=== PATIENT | male | born 1990 | race Hispanic/Latino ===

== ENCOUNTER 2023-08-15 20:47 | Emergency (ER) | payer OTHER, SELFPAY ==
[2023-08-15] VITALS (8 sets, daily range): BP systolic 110–167; BP diastolic 67–87; PULSE 74–105; RESP 16–26; TEMP 36.1–36.9; O2SAT 93–98
--- NOTE | 2023-08-15 20:43 | PC.NURSE ---
haldol 5mg and ativan 2mg vrbo per dr mckenzie from pt bedside
[2023-08-15] MEDS: HALOPERIDOL LACTATE 5 MG/ML VIAL IM (21:03)
[2023-08-15] MEDS: LORazepam INJ (*CRX) 2 MG/ML VIAL IM (21:03)
--- NOTE | 2023-08-15 21:03 | PC.NURSE ---
Pt given haldol 5mg and ativan 2mg at 2044 to assist with growling, aggressive behavior towards pd and staff.
[2023-08-15 21:07] LABS: Basophils Percent Auto 0.3 % (0.2-1.2); Eosinophils Absolute Auto 0.2 K/mm3 (0-0.3); Eosinophils Percent Auto 1.7 % (0-4.4); Hematocrit 45.4 % (42.0-52.0); Hemoglobin 15.4 g/dL (14.0-18.0); Immature Granulocyte Absolute 0.04 K/mm3 (0.00-0.031); Immature Granulocyte Percent A 0.3 % (0-0.5); Lymphocytes Absolute Auto 3.77 K/mm3 (0.9-3.2); Lymphocytes Percent Auto 32.9 % (18.3-44.2); Mean Corpuscular HGB Conc 33.9 g/dl (32-36); Mean Corpuscular Hemoglobin 30.1 pg (26-34); Mean Corpuscular Volume 88.8 fl (80-100); Mean Platelet Volume 10.4 fl (7.4-10.4); Monocytes Absolute Auto 0.6 K/mm3 (0.1-0.6); Monocytes Percent Auto 5.4 % (2.6-8.5); Neutrophils Absolute Auto 6.8 K/mm3 (1.3-6.7); Neutrophils Percent Auto 59.4 % (45.5-73.1); Platelet Count Result 280 k/mm3 (150-375); Red Blood Count 5.11 M/mm3 (4.6-6.20); Red Cell Distribution Width 13.8 % (11.5-14.5); White Blood Count 11.5 K/mm3 (4.5-10.0)
[2023-08-15 21:18] LABS: Ethanol < 10 mg/dL (<10)
[2023-08-15 21:35] LABS: Alanine Aminotransferase 25 U/L (6-50); Albumin Level 4.6 g/dL (3.5-5.1); Alkaline Phosphatase 84 U/L (38-126); Anion Gap 13 mmol/L (4-12); Aspartate Amino Transferase 24 U/L (17-59); Bilirubin,Total 0.7 mg/dL (0.2-1.3); Blood Urea Nitrogen 17 mg/dL (9-20); Calcium 9.3 mg/dL (8.4-10.2); Carbon Dioxide 18 mmol/L (22-30); Chloride 111 mmol/L (98-107); Estimated CRCL calculation 126 ml/min; Estimated Glomerular Filt Rate > 60; Glucose 136 mg/dL (65-110); Potassium 3.5 mmol/L (3.4-5.0); Sodium 142 mmol/L (137-145)
[2023-08-15 21:44] LABS: Influenza A QL RT-PCR Negative (Negative); Influenza B QL RT-PCR Negative (Negative); RSV RNA, RT-PCR Negative (Negative); SARS-CoV-2 RNA PCR Negative (Negative)
[2023-08-15 21:59] LABS: Amphetamine Screen Urine Negative (Negative); Barbiturate Screen Urine Negative (Negative); Benzodiazepines Screen Urine Negative (Negative); Cannabinoid Screen Urine Positive (Negative); Cocaine Screen Urine Negative (Negative); Methadone Screen Urine Negative (Negative); Opiate Screen Urine Negative (Negative); Phencyclidine Screen Urine Negative (Negative)
--- NOTE | 2023-08-15 22:03 | ED.PSYCH ---
HPI - Psych General Chief Complaint: Psychiatric Symptoms Stated Complaint: BIPOLAR, AGGRESION, A/V HALLUCINATIONS Source: patient and family (mother, Tiesha ) Mode of arrival: EMS Limitations: other (agitation) History of Present Illness HPI Narrative: Patient is initially agitated requiring chemical restraint. Thus, history is initially obtained from patient's mother who is his guardian. She reports he has a history of bipolar and schizophrenia and has been aggressive at home and was aggressive with police today. She is in fear in they have to lock their doors. She states he had previously been on monthly Invega injections but the state program that they were a part of that had a nurse come to the home to help administer this was discontinued and he has been without this for the past 2-3 years. He now experiences hallucinations both auditory and visual. Mother states that he will not shower as he states that if he takes off his clothes he is paranoid they are watching him. She reports that he threatened to kill her if he did get cigarettes. She states he smokes a carton and a half per week. She knows that he used marijuana as a teenager but does not know about current use. Patient arouses during my exam with him, denies any chest pain, abdominal pain, shortness of breath. Related Data Home Medications Medication Instructions Recorded Confirmed No Home Medications 08/15/23 Allergies Allergy/AdvReac Type Severity Reaction Status Date / Time No Known Allergies Allergy Verified 08/15/23 21:01 [facility] Past Medical History Medical History Bipolar disorder Schizophrenia Family History Family History (Updated 10/18/13 @ 07:13 by DOCTOR UNKNOWN) Mother Hypertension Family history of elevated blood lipids Social History Social History (Updated 08/16/23 @ 05:14 by Jelly Mcgrath MD) Smoking status: Current every day smoker Second hand tobacco smoke exposure: No Additional smoking assessment comments: 1.5 cartons per week Alcohol intake: current Substance use type: marijuana Living arrangements: with family Exam Narrative: GENERAL: Well-appearing, well-nourished; HEAD: Normocephalic, atraumatic. EYES: Non injected, non icteric ENT: Nares clear, no rhinorrhea or epistaxis. NECK: Supple. CHEST: Not in respiratory distress. Snoring respirations well sleeping but otherwise protecting his airway. Lungs clear to auscultation on exam once he is awake. ABDOMEN: Soft, nondistended. EXTREMITIES: Normal range of motion. No edema. SKIN: Warm, dry. NEURO: No focal deficits. Alert and oriented. PSYCH: Agitated with staff/EMS personnel. Growling. Poor hygiene. Course Vital Signs Vital signs: Vital Signs Temperature 97.5 F L 08/15/23 20:54 Pulse Rate 105 H 08/15/23 20:54 Respiratory Rate 26 H 08/15/23 20:54 Blood Pressure 141/79 H 08/15/23 20:54 Pulse Oximetry 96 08/15/23 20:54 Temperature 98 F 08/16/23 00:35 Pulse Rate 86 08/16/23 00:35 Respiratory Rate 18 08/16/23 00:35 Blood Pressure 123/70 08/16/23 00:35 Pulse Oximetry 98 08/16/23 00:35 MDM - Psych MDM Narrative Medical decision making narrative: 33-year-old with past medical history of bipolar disorder and schizophrenia per mother who is also his guardian. She notes that he was previously on monthly Invega injections but the state program that provided nurse to administer this at the house had been discontinued and thus he has been out of this medication for the past 2-3 years. She states he has decompensated significantly over the past month, becoming more aggressive. He does not shower as he has hallucinations and is paranoid they are watching him if he is naked. He threatened to kill her if she doesn't get him cigarettes, which he smokes 1.5 cartons of per week. In the emergency department he is afebrile with vital signs michelle
[2023-08-15 22:12] LABS: Appearance Urine Clear (Clear); Bilirubin Urine Negative (Negative); Blood Urine Negative (Negative); Color Urine Yellow (Yellow); Glucose Urine UA Negative (Negative); Ketones Urine Trace mg/dL (Negative); Leukocyte Esterase Ur Negative LEU/UL (Negative); Nitrate Urine Negative (Negative); Protein Urine Negative (Negative); Specific Grav Ur 1.029 (1.001-1.035); Urobilinogen Urine 0.2 mg/dL (<2.0); pH Urine 5.5 (5.0-9.0)
[2023-08-15 22:20] LABS: Add Urine Microscopic? NO
[2023-08-16] VITALS (7 sets, daily range): BP systolic 123–145; BP diastolic 70–90; PULSE 53–86; RESP 14–18; TEMP 36.3–37.2; O2SAT 97–99
--- NOTE | 2023-08-16 01:40 | PC.NURSE ---
[facility] - [address], [place] [address] Rn to ZECHARIAH Gomez
--- NOTE | 2023-08-16 07:39 | PC.NURSE ---
called dietary at this time and ordered a breakfast tray for pt, pt continues to rest on the stretcher, equal chest rise and fall
--- NOTE | 2023-08-16 09:39 | PC.NURSE ---
calls for EMS transport Replaced By [facility]- - has no truck
--- NOTE | 2023-08-16 13:11 | PC.NURSE ---
additional records faxed to [facility] as requested by facility FAX [phone]
--- NOTE | 2023-08-16 13:35 | ECG_ITS ---
Test Date: 2023-08-16 13:41:56 Measurements Intervals [place] Rate: 65 P: 24 NE: 155 QRS: 60 QRSD: 95 T: 14 QT: 348 QTc: 364 Interpretive Statements SINUS RHYTHM WITH SINUS ARRHYTHMIA LOW QRS VOLTAGE IN PRECORDIAL LEADS [QRS DEFLECTION < 1.0 mV IN CHEST LEADS] No previous ECG available for comparison Electronically Signed On 08-17-2023 11:43:28 CDT by Suzi Waters M.D.
--- NOTE | 2023-08-16 13:47 | PC.NURSE ---
EKG faxed to [facility] as requested at this time.
--- NOTE | 2023-08-16 16:27 | PC.NURSE ---
Pt escalating and becoming agitated. ED staff Attempting to deescalate at this time w/out success. Per [facility] charge gang weigher, 2 security officers are being notified to stand by patient room due to pt becoming antsy and attempting to leave room 15.
--- NOTE | 2023-08-16 16:44 | PC.NURSE ---
Jenna from [facility] called to notify [facility] has declined the pt due to they feel he needs ocean transportation intermediary care, and [facility] is more for short term issues. Jenna states she will continue to reach out for placement.
--- NOTE | 2023-08-16 17:08 | PC.NURSE ---
called dietary and ordered dinner for this patient at this time
[2023-08-16] MEDS: LORazepam INJ (*CRX) 2 MG/ML VIAL IM (19:27)
[2023-08-16] MEDS: HALOPERIDOL LACTATE 5 MG/ML VIAL IM (19:27)
[2023-08-16] MEDS: NICOTINE (*PBKC) 21 MG PATCH 1 PATCH TRANSDERM (19:47)
--- NOTE | 2023-08-16 21:35 | PC.NURSE ---
Fax sheet, face sheet, chart faxed to [phone] and [facility] per orders from Jenna with Crisis.
--- NOTE | 2023-08-16 22:15 | PC.NURSE ---
[facility] stated pt has been denied for acceptance due to high acuity. They stated that if [facility] falls through, pt may be reconsidered tomorrow with a rereferral.
--- NOTE | 2023-08-16 22:15 | PC.NURSE ---
Involuntary form faxed to Enrique ([facility])
--- NOTE | 2023-08-16 23:38 | PC.NURSE ---
Enrique with [facility] called stating that pt has been denied at this time due to them not having a restraint bed available.
[2023-08-17 00:34] VITALS: BP 130/79; PULSE 60; RESP 14; TEMP 36.3; O2SAT 98
[2023-08-17 07:57] VITALS: BP 132/79; PULSE 57; RESP 18; TEMP 36.4; O2SAT 97
--- NOTE | 2023-08-17 07:59 | PC.NURSE ---
Pt ambulating in halls. Cooperative. Easily redirectable.
--- NOTE | 2023-08-17 10:40 | PC.NURSE ---
To [facility] via [facility] ems. Condition stable.
--- NOTE | 2023-08-17 10:44 | PC.NURSE ---
[facility] notified that pt has left [facility].
== END 2023-08-17 10:45 ==
PROVIDERS: Emergency Provider Student in an Organized Health Care Education/Training Program
DX: F20.9 Schizophrenia, unspecified (principal); D72.829 Elevated white blood cell count, unspecified; F12.90 Cannabis use, unspecified, uncomplicated; Z20.822 Contact with and (suspected) exposure to COVID-19
CPT/HCPCS: 36415; 80053; 80307; 81003; 84443; 85025; 87637; 93005; 96372; 99285; A9270; J1200; J1630; J2060